=== PATIENT | female | born 1995 | race Caucasian/White ===

== ENCOUNTER 2016-07-29 11:13 | Emergency (ER) | payer OTHER ==
[2016-07-29 11:41] VITALS: RESP 18; TEMP 98.2
--- NOTE | 2016-07-29 14:26 | EDPHY ---
H & P Stated Complaint: Sore throat, runny nose, unable to sleep. Time Seen by Provider: 07/29/16 14:15 HPI/ROS: CHIEF COMPLAINT: "I have been sick for a month" HISTORY OF PRESENT ILLNESS: 20-year-old immunocompetent female complaining of URI symptoms for the past 1 month, worse in the past few days. Symptoms including nasal congestion, sore throat, intermittently productive cough sinus congestion, awoke with crusting left eye. History of contact lens use, none currently.. Denies: Chest pain, dyspnea, back pain, abdominal pain, nausea, vomiting, rash. PRIMARY CARE PROVIDER: [facility] REVIEW OF SYSTEMS: A ten point review of systems was performed and is negative with the exception of the items mentioned in the HPI PAST MEDICAL & SURGICAL HISTORY: No pertinent medical or surgical history SOCIAL HISTORY: Nonsmoker PHYSICAL EXAM (Prior to examination, patient consented to physical exam, hands were washed and my usual and customary physical exam procedures followed) 1) GENERAL: Well-developed, well-nourished, alert and oriented. Appears nontoxic 2) HEAD: Normocephalic, atraumatic 3) HEENT: Pupils equal, round, reactive to light bilaterally. Sclera anicteric. Mild injections the left sclera. No pain with extraocular movements. No proptosis. No periorbital erythema or induration. No crepitus. oropharynx: Clear, no tonsillar enlargement or exudate. Nasopharynx: Congestion. Ears bilaterally with normal tympanic membranes. 4) NECK: Full range of motion, no meningeal signs. 5) LUNGS: Clear auscultation bilaterally, no wheezes, no rhonchi, no retractions. 6) HEART: Regular rate and rhythm, no murmur, no heave, no gallop. 7) ABDOMEN: No guarding, no rebound, no focal tenderness, negative McBurney's, negative Haynes's, negative Rovsing's, negative peritoneal sign, 8) MUSCULOSKELETAL: No peripheral edema or discoloration. 9) BACK: No CVA tenderness. 10) SKIN: No rash, no petechiae. 11) Psychiatric: Patient is oriented X 3, there is no agitation. DIFFERENTIAL DIAGNOSIS: no particular include but limited to acute sinusitis, strep pharyngitis, mononucleosis, meningitis, influenza - Personal History LMP (Females 10-55): 8-14 Days Ago Current Tetanus/Diphtheria Vaccine: Unsure Current Tetanus Diphtheria and Acellular Pertussis (TDAP): Unsure - Medical/Surgical History Hx Asthma: No Hx Chronic Respiratory Disease: No Hx Diabetes: No Hx Cardiac Disease: No Hx Renal Disease: No Hx Cirrhosis: No Hx Alcoholism: No Hx HIV/AIDS: No Hx Splenectomy or Spleen Trauma: No Other PMH: EATING DISORDER, anxiety; - Social History Smoking Status: Former smoker Constitutional: Initial Vital Signs Temperature (C) 36.8 C 07/29/16 11:37 Heart Rate 88 07/29/16 11:37 Respiratory Rate 18 07/29/16 11:37 Blood Pressure 123/102 H 07/29/16 11:37 O2 Sat (%) 97 07/29/16 11:37 O2 Delivery Mode Room Air Allergies/Adverse Reactions: No Known Allergies Allergy (Verified 07/29/16 11:41) Home Medications: Medication Instructions Recorded Control Pill 06/14/14 Sertraline HCl [Zoloft 100mg (RX)] 07/10/14 FLUoxetine [Prozac 10 MG (RX)] 07/07/15 AZITHROMYCIN [Z-PACK] 500 mg PO DAILY #1 packet 07/29/16 Ofloxacin 0.3% [Ocuflox 0.3%] 2 drops EACHEYE QID #1 opht.btl 07/29/16 Medical Decision Making ED Course/Re-evaluation: Re-evaluation with serial exams was recently at 3:00 p.m.. Discussed her negative flu and strep testing. Given the longevity of her symptoms I think a trial of antibiotics is appropriate for the patient. I do not think that hospitalization is currently indicated. I do not think that chest imaging currently indicated in the presence of clear lungs, maintain normal saturations. Doubt meningitis. She also has mild scleral injection to the left eye, woke with crusting the left eye, history of contact lens use. Recommend she dispose of contact lenses and not wear them for 1 week. Recommend follow up with Ophthalmology. Given Ocuflox prescription. - Data Points Laboratory Results: 07/29/16 07/29/16 07/29/16 Unknown 14:24 14:24 Influenza Typ A,B (DFA) NEGATIVE FOR FLU (NEGATIVE) Group A Strep Screen NEGATIVE (NEGATIVE) Group A Strep DNA Pending Departure - Departure Disposition: Home, Routine, Self-Care Clinical Impression: Upper respiratory infection Qualifiers: URI type: unspecified URI Qualified Code(s): J06.9 - Acute upper respiratory infection, unspecified Conjunctivitis, left eye Qualifiers: Conjunctivitis type: acute Acute conjunctivitis type: bacterial Qualified Code( s): H10.32 - Unspecified acute conjunctivitis, left eye Condition: Good Instructions: Upper Respiratory Infection (ED), Conjunctivitis (ED) Additional Instructions: Return to the ER if you develop chest pain, shortness of breath, new or worsening symptoms, neck pain or stiffness or any other symptoms that concern you Referrals: [facility],. [Clinic] - 2-3 days, call for appt. Davdi Segundo MD [Medical Doctor] - 2-3 days, call for appt. Prescriptions: AZITHROMYCIN [Z-PACK] 500 mg PO DAILY #1 packet Ofloxacin 0.3% [Ocuflox 0.3%] 2 drops EACHEYE QID #1 opht.btl
[2016-07-29 15:31] VITALS: BP 125/85; PULSE 85; O2SAT 95
== END 2016-07-29 15:31 | disposition home or self-care (01) ==
DX: J06.9 Acute upper respiratory infection, unspecified (principal); H10.32 Unspecified acute conjunctivitis, left eye; Z87.891 Personal history of nicotine dependence

== ENCOUNTER 2016-11-02 22:54 | Emergency (ER) | payer OTHER ==
[2016-11-02 23:07] VITALS: RESP 16; TEMP 97.7; O2SAT 96
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
[2016-11-03] MEDS ORDERED: CYCLOBENZAPRINE 10MG PREPACK#3 BTL TAKEHOME ONE (00:28)
[2016-11-03 00:36] VITALS: BP 107/68; PULSE 79
== END 2016-11-03 00:36 | disposition home or self-care (01) ==
DX: S16.1XXA Strain of muscle, fascia and tendon at neck level, initial encounter (principal); S29.019A Strain of muscle and tendon of unspecified wall of thorax, initial encounter; V49.50XA Passenger injured in collision with unspecified motor vehicles in traffic accident, initial encounter; Y92.410 Unspecified street and highway as the place of occurrence of the external cause
CPT/HCPCS: L0172

== ENCOUNTER 2017-02-17 21:47 | Emergency (ER) | payer OTHER ==
[2017-02-17] MEDS ORDERED: ONDANSETRON DISINTEGRATING 4 MG TAB PO ONE (21:54)
[2017-02-17] MEDS ORDERED: NS 1,000 ML IV ONE (22:36)
[2017-02-17] MEDS ORDERED: METOCLOPRAMIDE 10 MG/2 ML VIAL IVP ONE (22:36)
[2017-02-17] MEDS ORDERED: KETOROLAC 30 MG/1 ML SDV IVP ONE (22:36)
--- NOTE | 2017-02-17 22:50 | EDPHY ---
HPI/HX/ROS/PE/MDM Narrative: CHIEF COMPLAINT: Headache, vomiting HPI: The patient is a 21-year-old female with a history of migraine headaches and multiple emergency department visits for the last few years for variety of complaints including headaches. She complains of gradual onset of typical migraine headache over the last 2 weeks associated with some intermittent vomiting. She denies fever, she denies neck pain, she denies abdominal pain. She states this headache is typical of her migraine headaches. She has taken Excedrin without relief. No vision changes, numbness or weakness. REVIEW OF SYSTEMS: Aside from elements discussed in the HPI, a comprehensive 10-point review of systems was reviewed and is negative. PMH: Migraine headaches. Dysmenorrhea. SOCIAL HISTORY: Denies alcohol or drug abuse. PHYSICAL EXAM: General:Patient is alert, in no acute distress. ENT:Eyes are normal to inspection. ENT inspection normal. Mild photophobia is noted. Neck: Normal inspection. Full range of motion. No meningismus. Respiratory:No respiratory distress. Breath sounds normal bilaterally. Cardiovascular: Regular rate and rhythm. Strong peripheral pulses. Normal cap refill. Abdomen:The abdomen is nontender to palpation. There are no peritoneal signs. There are normal bowel sounds. Back: Normal to inspection. No tenderness to palpation. Skin: Normal color. No rash. Warm and dry. Extremities: Normal appearance. Full range of motion. Neuro: Oriented x3. Normal motor function. Normal sensory function. (Clay Rhodes) ED Course: Patient was treated with IV Reglan, Benadryl, Toradol and IV fluids. Patient signed out to Dr. Miranda at 11:00 p.m. pending re-evaluation and potentially further workup (Clay Rhodes) 12:40 a.m.- The patient has remained stable over my shift. She had improvement in her symptoms after receiving medications. She will be discharged from the emergency room. (Kesha Miranda) - Data Points Laboratory Results: 02/17/17 02/17/17 22:00 21:57 Urine Test NEGATIVE Influenza A & B (PCR) NEGATIVE FOR FLU (NEGATIVE) Medications Given: Discontinued Medications Diphenhydramine HCl (Benadryl Injection) 25 mg IVP EDNOW ONE Stop: 02/17/17 22:37 Last Admin: 02/17/17 22:57 Dose: 25 mg Diphenhydramine HCl (Benadryl Injection) 25 mg IVP EDNOW ONE Stop: 02/17/17 23:16 Last Admin: 02/17/17 23:17 Dose: 25 mg Sodium Chloride (Ns) 1,000 mls @ 0 mls/hr IV ONCE ONE; Wide Open PRN Reason: Protocol Stop: 02/17/17 22:37 Last Admin: 02/17/17 22:55 Dose: 1,000 mls Ketorolac Tromethamine (Toradol) 30 mg IVP EDNOW ONE Stop: 02/17/17 22:37 Last Admin: 02/17/17 22:56 Dose: 30 mg Metoclopramide HCl (Reglan Injection) 10 mg IVP EDNOW ONE Stop: 02/17/17 22:37 Last Admin: 02/17/17 22:57 Dose: 10 mg Ondansetron HCl (Zofran Odt) 4 mg PO EDNOW ONE Stop: 02/17/17 21:55 Last Admin: 02/17/17 21:57 Dose: 4 mg General Time Seen by Provider: 02/17/17 22:31 Initial Vital Signs: Initial Vital Signs Temperature (C) 36.8 C 02/17/17 21:50 Heart Rate 80 02/17/17 21:50 Respiratory Rate 20 02/17/17 21:50 Blood Pressure 118/81 H 02/17/17 21:50 O2 Sat (%) 96 02/17/17 21:50 O2 Delivery Mode Room Air Allergies/Adverse Reactions: No Known Allergies Allergy (Verified 07/29/16 11:41) Home Medications: Medication Instructions Recorded Control Pill 06/14/14 Sertraline HCl [Zoloft 100mg (RX)] 07/10/14 FLUoxetine [Prozac 10 MG (RX)] 07/07/15 Departure - Departure Disposition: Home, Routine, Self-Care Clinical Impression: Migraine headache Condition: Good Instructions: Migraine Headache (ED) Additional Instructions: Follow-up with your primary care physician within 72 hours. Return to the emergency department immediately for recurrence of headache, nausea, vomiting, numbness, weakness, neck pain, fever or other concerns. Referrals: ROSA BAL [Other] - As per Instructions
[2017-02-18 01:04] VITALS: BP 103/67; PULSE 70; RESP 16; TEMP 98.6; O2SAT 97
== END 2017-02-18 01:02 | disposition home or self-care (01) ==
DX: G43.909 Migraine, unspecified, not intractable, without status migrainosus (principal); E86.9 Volume depletion, unspecified
CPT/HCPCS: 96374; J1200; J1885; J2765

== ENCOUNTER 2017-03-02 04:18 | Emergency (ER) | payer OTHER ==
[2017-03-02 04:23] VITALS: TEMP 98.4
[2017-03-02] MEDS ORDERED: ONDANSETRON 4 MG/2 ML VIAL ONE (04:27)
[2017-03-02] MEDS ORDERED: NS 1,000 ML IV ONE (04:30)
[2017-03-02] MEDS ORDERED: ONDANSETRON 4 MG/2 ML VIAL IVP ONE (04:30)
[2017-03-02] MEDS ORDERED: ONDANSETRON DISINTEGRATING 4 MG TAB ONE (04:34)
[2017-03-02] MEDS ORDERED: ONDANSETRON DISINTEGRATING 4 MG TAB PO ONE (04:35)
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
[2017-03-02] MEDS ORDERED: DEXAMETHASONE 10 MG/ML VIAL IVP ONE (04:54)
[2017-03-02] MEDS ORDERED: KETOROLAC 30 MG/1 ML SDV IVP ONE (04:54)
[2017-03-02] MEDS ORDERED: METOCLOPRAMIDE 10 MG/2 ML VIAL IVP ONE (04:54)
[2017-03-02 05:17] LABS: % IMMATURE GRANULYOCYTES 0.3 % (0.0-1.1); ABSOLUTE IMMATURE GRANULOCYTES 0.03 10^3/uL (0.00-0.10); ADD DIFF? NO; ADD MORPH? NO; ADD SCAN? NO; ATYPICAL LYMPHOCYTE FLAG 10 (0-99); FRAGMENT RBC FLAG 0 (0-99); HEMOGLOBIN 15.2 g/dL (12.6-16.3); LEFT SHIFT FLG 0 (0-99); LIPEMIA HEMOLYSIS FLAG 90 (0-99); MEAN CELL HEMOGLOBIN 30.6 pg (27.9-34.1); MEAN CELL HEMOGLOBIN CONCENTR. 34.5 g/dL (32.4-36.7); MEAN CELL VOLUME 88.5 fL (81.5-99.8); PLATELET CLUMPS FLAG 0 (0-99); PLATELET COUNT 346 10^3/uL (150-400); RED BLOOD CELL COUNT 4.97 10^6/uL (4.18-5.33); RED CELL DISTRIBUTION WIDTH 11.7 % (11.5-15.2)
[2017-03-02 05:44] LABS: ANION GAP 16 mEq/L (8-16); CARBON DIOXIDE 21 mEq/l (22-31); CHLORIDE 105 mEq/L (97-110); CREATININE 0.7 mg/dL (0.6-1.0); GLOMERULAR FILTRATION RATE > 60; GLUCOSE 88 mg/dL (70-100); POTASSIUM 3.7 mEq/L (3.5-5.2); SODIUM 142 mEq/L (134-144)
[2017-03-02 06:40] VITALS: BP 107/65; PULSE 71; RESP 16; O2SAT 97
== END 2017-03-02 06:37 | disposition home or self-care (01) ==
DX: R51 Headache (principal); E86.9 Volume depletion, unspecified
CPT/HCPCS: 96374; J1100; J1200; J1885; J2405; J2765